=== PATIENT | male | born 1965 | race American Indian/Alaskan Native ===

== ENCOUNTER 2017-11-06 15:30 | Emergency (ER) | payer SELFPAY ==
--- NOTE | 2017-11-06 18:51 | Cat Scan Report ---
FINAL REPORT EXAM: CT HEAD/BRAIN WO CON HISTORY: dizziness TECHNIQUE: Standard unenhanced CT of the head at 5.0 millimeter axial increments. PRIORS: None. FINDINGS: The ventricular system is normal in size and configuration. There is no evidence for parenchymal volume loss. There is no evidence for mass lesion, mass effect, midline shift, acute intracranial hemorrhage, or acute ischemia/ infarction. No evidence for acute skull fracture is seen. No abnormality in the overlying scalp soft tissues is seen. Visualized paranasal sinuses are clear. IMPRESSION: Negative CT of the head. No acute intracranial process noted.
[2017-11-06 18:56] LABS: Hematocrit 44.5 % (35.5-45.6); Hemoglobin 14.7 gm/dl (11.8-15.2); Mean Corpuscular HGB Conc 33 % (32-34); Mean Corpuscular Hemoglobin 31 pg (28-32); Mean Corpuscular Volume 94 fl (84-94); Platelet Count 220 K/mm3 (140-440); Red Blood Count 4.75 M/mm3 (3.65-5.03)
[2017-11-06 19:15] LABS: INR 0.96 (0.87-1.13); Partial Thromboplastin Time 28.1 Sec. (24.2-36.6)
[2017-11-06 19:18] LABS: Albumin 4.2 g/dL (3.9-5)
--- NOTE | 2017-11-06 22:13 | Emergency Department Report ---
ED Dizziness HPI - General Chief Complaint: Dizziness Stated Complaint: DIZZINESS Time Seen by Provider: 11/06/17 21:17 Source: patient Mode of arrival: Ambulatory Limitations: No Limitations - History of Present Illness Initial Comments: 52-year-old male witha past medical history presents to the hospital complaining of intermittent lightheadedness and dizziness times a few days. Patient states symptoms mainly occur when leaning forward and sitting up as well as turning head. He states he feels like he is going to pass out and not so much having a spinning sensation. He he complains of nausea. He denies vomiting, blurry vision, focal weakness, focal numbness, chest pain, shortness of breath, abdominal pain, diarrhea, headache, or fever. Patient complains of ringing in his right ear 3 weeks ago which resolved and then he developed ringing in his left ear. 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 but states he performs a lot of physical activity and sweats a lot - Related Data Allergies Allergy/AdvReac Type Severity Reaction Status Date / Time No Known Allergies Allergy Unverified 11/06/17 16:05 ED Review of Systems ROS: Stated complaint: DIZZINESS Other details as noted in HPI Comment: All other systems reviewed and negative ED Past Medical Hx - Past Medical History Previous Medical History?: No - Surgical History Past Surgical History?: Yes Additional Surgical History: hernia repair - Social History Smoking Status: Never Smoker Substance Use Type: None ED Physical Exam - General Limitations: No Limitations - Other Other exam information: General: No limitations, patient is alert in no acute distress Head exam: Atraumatic, normocephalic Eyes exam: Normal appearance, pupils equal reactive to light, extraocular movements intact ENT: Moist mucous membrane, bilateral TMs normal Neck exam: Normal inspection, full range of motion, no meningismus nontender Respiratory exam: Clear to auscultation bilateral, no wheezes, rales, crackles Cardiovascular: Normal rate and rhythm, normal heart sounds Abdomen: Soft, nondistended, and nontender, with normal bowel sounds, no rebound, or guarding Extremity: Full range of motion normal inspection no deformity Back: Normal Inspection, full range of motion, no tenderness Neurologic: Alert, oriented x3, cranial nerves intact, no motor or sensory deficit, [id number] function intact Psychiatric: normal affect, normal mood Skin: Warm, dry, intact ED Course Vital Signs 11/06/17 11/06/17 11/06/17 16:05 22:08 22:11 Temperature 98.5 F Pulse Rate 72 Respiratory 18 18 Rate Blood Pressure 112/67 O2 Sat by Pulse 100 100 Oximetry 11/06/17 11/06/17 11/06/17 22:14 22:15 22:30 Temperature 98.2 F Pulse Rate Respiratory Rate Blood Pressure 127/79 137/73 O2 Sat by Pulse 99 99 Oximetry 11/06/17 11/06/17 11/06/17 22:45 23:00 23:15 Temperature Pulse Rate Respiratory Rate Blood Pressure 117/71 142/76 148/89 O2 Sat by Pulse 99 100 99 Oximetry 11/06/17 11/06/17 11/07/17 23:30 23:45 00:00 Temperature Pulse Rate Respiratory Rate Blood Pressure 156/95 146/95 150/85 O2 Sat by Pulse 99 100 Oximetry 11/07/17 11/07/17 11/07/17 00:15 00:30 00:45 Temperature Pulse Rate Respiratory Rate Blood Pressure 137/85 151/86 129/87 O2 Sat by Pulse 99 99 98 Oximetry 11/07/17 11/07/17 11/07/17 01:00 01:15 01:30 Temperature Pulse Rate Respiratory Rate Blood Pressure 133/86 129/77 120/84 O2 Sat by Pulse 99 99 96 Oximetry 11/07/17 01:46 Temperature Pulse Rate Respiratory Rate Blood Pressure 143/77 O2 Sat by Pulse 98 Oximetry - Reevaluation(s) Reevaluation #1: 11/07/17 02:07 after 2 L of NS dictating vital signs have improved the patient feels much better. ED Medical Decision Making - Lab Data Result diagrams: 11/06/17 18:34 11/06/17 18:34 Lab Results 11/06/17 11/06/17 11/06/17 Range/Units 18:34 18:34 18:34 WBC 5.0 (4.5-11.0) K/mm3 RBC 4.75 (3.65-5.03) M/mm3 Hgb 14.7 (11.8-15.2) gm/dl Hct 44.5 (35.5-45.6) % MCV 94 (84-94) fl MCH 31 (28-32) pg MCHC 33 (32-34) % RDW 14.0 (13.2-15.2) % Plt Count 220 (140-440) K/mm3 PT 13.3 (12.2-14.9) Sec. INR 0.96 (0.87-1.13) APTT 28.1 (24.2-36.6) Sec. Sodium 139 (137-145) mmol/L Potassium 4.0 (3.6-5.0) mmol/L Chloride 101.0 (98-107) mmol/L Carbon Dioxide 26 (22-30) mmol/L Anion Gap 16 mmol/L BUN 20 (9-20) mg/dL Creatinine 1.5 (0.8-1.5) mg/dL Estimated GFR 49 ml/min BUN/Creatinine Ratio 13 % Glucose 103 H (75-100) mg/dL Calcium 9.0 (8.4-10.2) mg/dL Magnesium (1.7-2.3) mg/dL Total Bilirubin 0.50 (0.1-1.2) mg/dL AST 46 H (5-40) units/L ALT 31 (7-56) units/L Alkaline Phosphatase 74 (35-129) units/L Troponin T (0.00-0.029) ng/mL Total Protein 7.0 (6.3-8.2) g/dL Albumin 4.2 (3.9-5) g/dL Albumin/Globulin Ratio 1.5 % //18 Range/Units 18:34 WBC (4.5-11.0) K/mm3 RBC (3.65-5.03) M/mm3 Hgb (11.8-15.2) gm/dl Hct (35.5-45.6) % MCV (84-94) fl MCH (28-32) pg MCHC (32-34) % RDW (13.2-15.2) % Plt Count (140-440) K/mm3 PT (12.2-14.9) Sec. INR (0.87-1.13) APTT (24.2-36.6) Sec. Sodium (137-145) mmol/L Potassium (3.6-5.0) mmol/L Chloride (98-107) mmol/L Carbon Dioxide (22-30) mmol/L Anion Gap mmol/L BUN (9-20) mg/dL Creatinine (0.8-1.5) mg/dL Estimated GFR ml/min BUN/Creatinine Ratio % Glucose (75-100) mg/dL Calcium (8.4-10.2) mg/dL Magnesium 2.30 (1.7-2.3) mg/dL Total Bilirubin (0.1-1.2) mg/dL AST (5-40) units/L ALT (7-56) units/L Alkaline Phosphatase (35-129) units/L Troponin T < 0.010 (0.00-0.029) ng/mL Total Protein (6.3-8.2) g/dL Albumin (3.9-5) g/dL Albumin/Globulin Ratio % - Radiology Data Radiology results: report reviewed FINAL REPORT EXAM: CT HEAD/BRAIN WO CON HISTORY: dizziness TECHNIQUE: Standard unenhanced CT of the head at 5.0 millimeter axial increments. PRIORS: None. FINDINGS: The ventricular system is normal in size and configuration. There is no evidence for parenchymal volume loss. There is no evidence for mass lesion, mass effect, midline shift, acute intracranial hemorrhage, or acute ischemia/ infarction. No evidence for acute skull fracture is seen. No abnormality in the overlying scalp soft tissues is seen. Visualized paranasal sinuses are clear. IMPRESSION: Negative CT of the head. No acute intracranial process noted. 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 ED Disposition Clinical Impression: Orthostatic dizziness, Dehydration Disposition: DC-01 TO HOME OR SELFCARE Is pt being admited?: No Does the pt Need Aspirin: No Condition: Stable Instructions: Lightheadedness (ED), Dehydration (ED) Additional Instructions: Follow up with your doctor or the doctor provided. Return if symptoms worsen as indicated by your discharge instructions. Continue to drink plenty of fluids before, during, and after work. Referrals: PRIMARY CARE, [Primary Care Provider] - 3-5 Days LETY GREER MD [Staff Physician] - 3-5 Days [facility] [Provider Group] - 3-5 Days Time of Disposition: 02:09 - Level of Consciousness 1a. Level of Consciousness: alert - LOC Questions 1b. LOC Questions: answers correctly - LOC Command 1c. LOC Commands: performs tasks correctly - Best Gaze 2. Best Gaze: normal - Visual 3. Visual: no visual loss - Facial Palsy 4. Facial Palsy: normal symmetrical movement - Motor Arm 5b. Motor Arm Right: no drift 5a. Motor Arm Left: no drift - Motor Leg 6a. Motor Leg Left: no drift 6b. Motor Leg Right: no drift - Limb Ataxia 7. Limb Ataxia: absent - Sensory 8. Sensory: normal - Best Language 9. Best Language: no aphasia - Dysarthria 10. Dysarthria: normal - Extinction and Inattention 11. Extinction/Inattention: no abnormality - Scoring Total Score: 0 Stroke Severity: No Stroke Symptoms
[2017-11-06] MEDS ORDERED: NACL 0.9% 1000 ML 1,000 ML IV ONE (22:26)
[2017-11-07] MEDS ORDERED: NACL 0.9% 1000 ML 1,000 ML IV ONE (00:36)
[2017-11-07 02:02] VITALS: BP 143/77
== END 2017-11-07 02:49 | disposition home or self-care (01) ==
LOC: ED 15:30
DX: E86.0 Dehydration (principal)
CPT/HCPCS: 36415; 70450; 80053; 83735; 84484; 85027; 85610; 85730; 93005; 93010; 96360; 96361; 99284; J7030

== ENCOUNTER 2019-05-11 11:19 | Inpatient (IN) | payer OTHER ==
--- NOTE | 2019-05-11 11:34 | Event Note ---
ED Screening Note Date of service: 05/11/19 Time: 11:31 ED Screening Note: Pt c/o syncopal episode x today began feeling lightheaded and racing heart prior to episode bilateral hand injuries This initial assessment/diagnostic orders/clinical plan/treatment(s) is/are subject to change based on patients health status, clinical progression and re- assessment by fellow clinical providers in the ED. Further treatment and workup at subsequent clinical providers discretion. Patient/guardian urged not to elope from the ED as their condition may be serious if not clinically assessed and managed. Initial orders include: CT head labs tdap
[2019-05-11 12:19] LABS: Basophils % (Auto) 0.4 % (0.0-1.8); Eosinophils # (Auto) 0.1 K/mm3 (0.0-0.4); Eosinophils % (Auto) 0.8 % (0.0-4.3); Hematocrit 44.6 % (35.5-45.6); Hemoglobin 14.9 gm/dl (11.8-15.2); Lymphocytes # (Auto) 0.7 K/mm3 (1.2-5.4); Lymphocytes % (Auto) 8.8 % (13.4-35.0); Mean Corpuscular HGB Conc 34 % (32-34); Mean Corpuscular Volume 92 fl (84-94); Monocytes # (Auto) 0.6 K/mm3 (0.0-0.8); Monocytes % (Auto) 7.5 % (0.0-7.3); Platelet Count 198 K/mm3 (140-440); Red Blood Count 4.87 M/mm3 (3.65-5.03); Red Cell Distribution Width 14.6 % (13.2-15.2)
[2019-05-11 12:29] LABS: Bilirubin,Urine NEG (Negative); Blood,Urine NEG (Negative); Color,Urine Yellow (Yellow); Mucus,Urine FEW /HPF
[2019-05-11 12:32] LABS: BUN/Creatinine Ratio 10; Blood Urea Nitrogen 12 mg/dL (9-20); Calcium 9.3 mg/dL (8.4-10.2); Hemolysis Index 11
[2019-05-11 12:36] LABS: Alanine Aminotransferase 25 units/L (7-56); Albumin 4.1 g/dL (3.9-5)
--- NOTE | 2019-05-11 12:39 | Cat Scan Report ---
CT BRAIN: 05/11/2019 INDICATION / CLINICAL INFORMATION: syncopal episode. COMPARISON: 11/06/2017 FINDINGS: BRAIN/INTRACRANIAL STRUCTURES: Unenhanced CT images of the brain were obtained and compared to the pr ior exam from 11/06/2017. There is been no change. There is no evidence of acute abnormality. Ventricles and sulci are normal in size and shape. There is no evidence of ischemic injury, demyelination, hemorrhage, or mass. There are no abnormal ex tra-axial fluid collections. EXTRACRANIAL STRUCTURES: Unremarkable. IMPRESSION: Negative unenhanced CT of the brain. All CT scans at this location are performed using dose reduction to ALARA by means of automated expos ure control. Signer Name: Emre Bethea MD Signed: 05/11/2019 12:35 PM Workstation Name: [id number]
[2019-05-11 12:41] LABS: Hyaline Casts,Urine 1 /LPF
[2019-05-11 12:51] LABS: Bilirubin,Direct < 0.2 mg/dL (0-0.2)
[2019-05-11 13:21] LABS: Chol/HDL Ratio 3.1 %
[2019-05-11] MEDS ORDERED: ASPIRIN 325 MG TAB PO ONE (13:54)
[2019-05-11] MEDS ORDERED: HEPARIN 10,000 UNITS/10 ML VIAL IV ONE (13:59)
--- NOTE | 2019-05-11 14:25 | History and Physical Report ---
History of Present Illness Chief complaint: I think I passed out History of present illness: 54 YO Male with no PMH presents to ED for evaluation. Patient states that he was in his usual state of health and was about to walk into a local truck stop when he experienced acute onset shortness of breath with concomitant heaviness in his chest. Patient states that he experienced chest pain. Patient states that pain was 6/10, acute onset, crushing in nature, worsened with deep breathing, associated with shortness of breath. Patient states that "I felt like I was being smothered". Patient subsequently lost consciousness and subsequently awoke with several people standing over him. Patient transported to [facility] via private vehicle. Patient seen and evaluated in the emergency department. Lab and imaging studies reviewed. Patient underwent cardiac enzymes and was found to have evidence of non-ST elevation AL. Cardiology team consulted in ED and patient was initiated on a heparin drip in the emergency department. Patient underwent CT Yoanna of the chest and was found to have bilateral pulmonary emboli. Patient admitted to telemetry for medical stabilization due to high risk for cardiopulmonary decompensation. No prior admission for review. No medication listed at time of admission for reconciliation. Patient denies fever, chills, palpitations, productive cough, bright red blood per rectum, unilateral leg swelling, individual/family history of DVT/PE/bleeding/blood clotting disorders, skin rash, or recent ill contacts. Past History Past Medical History: No medical history, other Past Surgical History: hernia repair Social history: single. denies: smoking, alcohol abuse, prescription drug abuse Family history: hypertension Medications and Allergies Allergies Allergy/AdvReac Type Severity Reaction Status Date / Time NSAIDS (Non-Steroidal AdvReac Unknown Verified 05/11/19 16:46 Anti-Inflamma Active Meds: Active Medications Heparin Sodium/Sodium Chloride (Heparin/ 0.45% Nacl-25,000 Unit/500 Ml) 25,000 unit in 500 mls @ 20 mls/hr IV TITRATE LILO; Protocol Review of Systems Constitutional: no weight loss, no weight gain, no fever, no chills Ears, nose, mouth and throat: no ear pain, no ear discharge, no tinnitis, no nasal congestion Cardiovascular: chest pain, shortness of breath, dyspnea on exertion, decreased exercise tolerance, no orthopnea, no palpitations, no rapid/irregular heart beat, no edema Respiratory: shortness of breath, dyspnea on exertion, pleurisy, no cough, no cough with sputum, no excessive sputum Gastrointestinal: no nausea, no vomiting, no diarrhea, no constipation, no change in bowel habits Genitourinary Male: no hematuria, no flank pain, no discharge, no urinary frequency, no urinary hesitancy Rectal: no pain, no incontinence, no bleeding Musculoskeletal: no neck stiffness, no neck pain, no shooting arm pain, no arm numbness/tingling, no low back pain, no shooting leg pain, no leg numbness/tingling Integumentary: no rash, no pruritis, no wounds, no jaundice, no boils Neurological: no transient paralysis, no paralysis, no weakness, no tingling Psychiatric: no anxiety, no change in sleep habits, no hypersomnia, no change in appetite, no change in libido, no suicidal ideation Endocrine: no cold intolerance, no heat intolerance, no excessive thirst, no nocturia Hematologic/Lymphatic: no easy bruising, no easy bleeding, no lymphadenopathy, no lymphedema Allergic/Immunologic: no urticaria, no wheezing, no persistent infections, no anaphylaxis, no angioedema Exam - Constitutional Vitals: Temp Pulse Resp BP Pulse Ox 97.6 F 87 16 140/98 94 05/11/19 11:29 05/11/19 11:29 05/11/19 11:29 05/11/19 11:29 05/11/19 11:29 General appearance: Present: mild distress - EENT Eyes: Present: PERRL ENT: hearing intact, clear oral mucosa - Neck Neck: Present: supple, normal ROM - Respiratory Respiratory effort: normal Respiratory: bilateral: CTA - Cardiovascular Heart Sounds: Present: S1 & S2. Absent: rub, click - Extremities Extremities: pulses symmetrical, No edema Peripheral Pulses: within normal limits - Abdominal General gastrointestinal: Present: soft, non-tender, non-distended, normal bowel sounds Male genitourinary: Present: normal - Integumentary Integumentary: Present: clear, warm, dry - Musculoskeletal Musculoskeletal: gait normal, strength equal bilaterally - Psychiatric Psychiatric: appropriate mood/affect, intact judgment & insight - Neurologic Neurologic: CNII-XII intact, moves all extremities Results - Labs CBC & Chem 7: 05/11/19 11:59 05/11/19 11:59 Labs: Abnormal lab results 05/11/19 05/11/19 05/11/19 Range/Units 11:48 11:59 11:59 Lymph % (Auto) 8.8 L (13.4-35.0) % Imperial % (Auto) 7.5 H (0.0-7.3) % Lymph # 0.7 L (1.2-5.4) K/mm3 Seg Neutrophils % 82.5 H (40.0-70.0) % Glucose 126 H (75-100) mg/dL POC Glucose 111 H (70-105) Troponin T (0.00-0.029) ng/mL 05/11/19 Range/Units 11:59 Lymph % (Auto) (13.4-35.0) % Imperial % (Auto) (0.0-7.3) % Lymph # (1.2-5.4) K/mm3 Seg Neutrophils % (40.0-70.0) % Glucose (75-100) mg/dL POC Glucose (70-105) Troponin T 0.156 H* (0.00-0.029) ng/mL Assessment and Plan - Patient Problems (1) NSTEMI (non-ST elevated myocardial infarction) Current Visit: Yes Status: Acute Plan to address problem: Cardiology consulted in ED, patient initiated on heparin drip in ED, serial cardiac enzymes, EKG, telemetry admission, morphine, supplemental oxygen, nitro, aspirin, further testing as per cardiology team. (2) Pulmonary emboli Current Visit: Yes Status: Acute Qualifiers: Chronicity: acute Plan to address problem: Therapeutic anticoagulation, CT angios chest, supportive care, supplemental oxygen, pulse oximetry, (3) DVT prophylaxis Current Visit: Yes Status: Acute Plan to address problem: SCD to bilateral lower extremities while in bed, therapeutic anticoagulation.
--- NOTE | 2019-05-11 14:29 | XRay Report ---
CHEST 2 VIEWS, 05/11/2019 2:10 PM INDICATION: Chest pain COMPARISON: None FINDINGS: Support devices: None Heart: The cardiac silhouette is normal in size. Lungs/pleura: The lungs are clear of focal airspace disease or significant pleural effusion. Additional findings: No significant acute abnormality. IMPRESSION: 1. No evidence of acute cardiopulmonary process. Signer Name: Luba Morales MD Signed: 05/11/2019 2:24 PM Workstation Name: [id number]
--- NOTE | 2019-05-11 14:35 | Emergency Department Report ---
ED General Adult HPI - General Chief complaint: Syncope Stated complaint: DIZZY Time Seen by Provider: 05/11/19 11:30 Source: patient Mode of arrival: Ambulatory Limitations: No Limitations - History of Present Illness Initial comments: Patient is a 54-year-old F Burmese male with no significant past medical history that he knows of who is presenting with episode of syncope. 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 Patient states he was about to walk into a truck stop and he acutely began to have shortness of breath chest heaviness feeling as though he was being smothered. Patient states by time he got into the building he was dizzy and had a brief loss of consciousness. Patient states he woke up with several people around him asking what C okay. He does not believe he hit his head. He has some scrapes on his knuckles he thinks from the fall little scrape on his right lloyd. Patient states the chest discomfort and shortness of breath that he initially had is now improved and he is pain-free. Patient denies any nausea vomiting diaphoresis fevers chills cough cold or congestion. Severity scale (0 -10): 0 - Related Data Allergies Allergy/AdvReac Type Severity Reaction Status Date / Time No Known Allergies Allergy Unverified 11/06/17 16:05 ED Review of Systems ROS: Stated complaint: DIZZY Other details as noted in HPI Comment: All other systems reviewed and negative ED Past Medical Hx - Past Medical History Previous Medical History?: No - Surgical History Past Surgical History?: Yes Additional Surgical History: hernia repair - Social History Smoking Status: Former Smoker ED Physical Exam - General Limitations: No Limitations General appearance: alert, in no apparent distress - Head Head exam: Present: atraumatic, normocephalic - Eye Eye exam: Present: normal appearance - ENT ENT exam: Present: mucous membranes moist - Neck Neck exam: Present: normal inspection - Respiratory Respiratory exam: Present: normal lung sounds bilaterally. Absent: respiratory distress, wheezes, rales, rhonchi - Cardiovascular Cardiovascular Exam: Present: regular rate, normal rhythm, normal heart sounds. Absent: systolic murmur, diastolic murmur, rubs, gallop - GI/Abdominal GI/Abdominal exam: Present: soft, normal bowel sounds. Absent: distended, tenderness, guarding - Rectal Rectal exam: Present: deferred - Extremities Exam Extremities exam: Present: normal inspection - Back Exam Back exam: Present: normal inspection - Neurological Exam Neurological exam: Present: alert, oriented X3 - Psychiatric Psychiatric exam: Present: normal affect, normal mood - Skin Skin exam: Present: warm, dry, intact, normal color. Absent: rash ED Course Vital Signs 05/11/19 11:29 Temperature 97.6 F Pulse Rate 87 Respiratory 16 Rate Blood Pressure 140/98 Blood Pressure 140/98 [Right] O2 Sat by Pulse 94 Oximetry ED Medical Decision Making - Lab Data Result diagrams: 05/11/19 11:59 05/11/19 11:59 Lab Results 05/11/19 05/11/19 05/11/19 Range/Units 11:48 11:59 11:59 WBC 8.4 (4.5-11.0) K/mm3 RBC 4.87 (3.65-5.03) M/mm3 Hgb 14.9 (11.8-15.2) gm/dl Hct 44.6 (35.5-45.6) % MCV 92 (84-94) fl MCH 31 (28-32) pg MCHC 34 (32-34) % RDW 14.6 (13.2-15.2) % Plt Count 198 (140-440) K/mm3 Lymph % (Auto) 8.8 L (13.4-35.0) % [place] % (Auto) 7.5 H (0.0-7.3) % Eos % (Auto) 0.8 (0.0-4.3) % Baso % (Auto) 0.4 (0.0-1.8) % Lymph # 0.7 L (1.2-5.4) K/mm3 [place] # 0.6 (0.0-0.8) K/mm3 Eos # 0.1 (0.0-0.4) K/mm3 Baso # 0.0 (0.0-0.1) K/mm3 Seg Neutrophils % 82.5 H (40.0-70.0) % Seg Neutrophils # 6.9 (1.8-7.7) K/mm3 Sodium 139 (137-145) mmol/L Potassium 4.3 (3.6-5.0) mmol/L Chloride 101.5 (98-107) mmol/L Carbon Dioxide 27 (22-30) mmol/L Anion Gap 15 mmol/L BUN 12 (9-20) mg/dL Creatinine 1.2 (0.8-1.5) mg/dL Estimated GFR > 60 ml/min BUN/Creatinine Ratio 10 % Glucose 126 H (75-100) mg/dL POC Glucose 111 H (70-105) Calcium 9.3 (8.4-10.2) mg/dL Total Bilirubin (0.1-1.2) mg/dL Direct Bilirubin (0-0.2) mg/dL AST (5-40) units/L ALT (7-56) units/L Alkaline Phosphatase (35-129) units/L Troponin T (0.00-0.029) ng/mL Total Protein (6.3-8.2) g/dL Albumin (3.9-5) g/dL Albumin/Globulin Ratio % Triglycerides (2-149) mg/dL Cholesterol (50-199) mg/dL LDL Cholesterol Direct (50-130) mg/dL HDL Cholesterol (40-59) mg/dL Cholesterol/HDL Ratio % Urine Color (Yellow) Urine Turbidity (Clear) Urine pH (5.0-7.0) Ur Specific [place] (1.003-1.030) Urine Protein (Negative) mg/dL Urine Glucose (UA) (Negative) mg/dL Urine Ketones (Negative) mg/dL Urine Blood (Negative) Urine Nitrite (Negative) Urine Bilirubin (Negative) Urine Urobilinogen (<2.0) mg/dL Ur Leukocyte Esterase (Negative) Urine WBC (Auto) (0.0-6.0) /HPF Urine RBC (Auto) (0.0-6.0) /HPF U Epithel Cells (Auto) (0-13.0) /HPF Hyaline Casts /LPF Urine Mucus /HPF 05/11/19 05/11/19 05/11/19 Range/Units 11:59 11:59 12:16 WBC (4.5-11.0) K/mm3 RBC (3.65-5.03) M/mm3 Hgb (11.8-15.2) gm/dl Hct (35.5-45.6) % MCV (84-94) fl MCH (28-32) pg MCHC (32-34) % RDW (13.2-15.2) % Plt Count (140-440) K/mm3 Lymph % (Auto) (13.4-35.0) % [place] % (Auto) (0.0-7.3) % Eos % (Auto) (0.0-4.3) % Baso % (Auto) (0.0-1.8) % Lymph # (1.2-5.4) K/mm3 [place]eller # (0.0-0.8) K/mm3 Eos # (0.0-0.4) K/mm3 Baso # (0.0-0.1) K/mm3 Seg Neutrophils % (40.0-70.0) % Seg Neutrophils # (1.8-7.7) K/mm3 Sodium (137-145) mmol/L Potassium (3.6-5.0) mmol/L Chloride (98-107) mmol/L Carbon Dioxide (22-30) mmol/L Anion Gap mmol/L BUN (9-20) mg/dL Creatinine (0.8-1.5) mg/dL Estimated GFR ml/min BUN/Creatinine Ratio % Glucose (75-100) mg/dL POC Glucose (70-105) Calcium (8.4-10.2) mg/dL Total Bilirubin 0.40 (0.1-1.2) mg/dL Direct Bilirubin < 0.2 (0-0.2) mg/dL AST 31 (5-40) units/L ALT 25 (7-56) units/L Alkaline Phosphatase 85 (35-129) units/L Troponin T 0.156 H* (0.00-0.029) ng/mL Total Protein 7.1 (6.3-8.2) g/dL Albumin 4.1 (3.9-5) g/dL Albumin/Globulin Ratio 1.4 % Triglycerides 45 (2-149) mg/dL Cholesterol 174 (50-199) mg/dL LDL Cholesterol Direct 114 (50-130) mg/dL HDL Cholesterol 56 (40-59) mg/dL Cholesterol/HDL Ratio 3.10 % Urine Color Yellow (Yellow) Urine Turbidity Clear (Clear) Urine pH 7.0 (5.0-7.0) Ur Specific [place] 1.021 (1.003-1.030) Urine Protein 30 mg/dl (Negative) mg/dL Urine Glucose (UA) Neg (Negative) mg/dL Urine Ketones Neg (Negative) mg/dL Urine Blood Neg (Negative) Urine Nitrite Neg (Negative) Urine Bilirubin Neg (Negative) Urine Urobilinogen 2.0 (<2.0) mg/dL Ur Leukocyte Esterase Neg (Negative) Urine WBC (Auto) 1.0 (0.0-6.0) /HPF Urine RBC (Auto) 2.0 (0.0-6.0) /HPF U Epithel Cells (Auto) < 1.0 (0-13.0) /HPF Hyaline Casts 1 /LPF Urine Mucus Few /HPF - EKG Data -: EKG Interpreted by In EKG shows normal: sinus rhythm, axis, intervals, QRS complexes, ST-T waves (There is some diffuse T wave flattening there is nonspecific) Rate: normal - Radiology Data CHEST 2 VIEWS, 05/11/2019 2:10 PM INDICATION: Chest pain COMPARISON: None FINDINGS: Support devices: None Heart: The cardiac silhouette is normal in size. Lungs/pleura: The lungs are clear of focal airspace disease or significant pleural effusion. Additional findings: No significant acute abnormality. IMPRESSION: 1. No evidence of acute cardiopulmonary process. Signer Name: Luba Morales MD Signed: 05/11/2019 2:24 PM Workstation Name: [id number] CT BRAIN: 05/11/2019 INDICATION / CLINICAL INFORMATION: syncopal episode. COMPARISON: 11/06/2017 FINDINGS: BRAIN/INTRACRANIAL STRUCTURES: Unenhanced CT images of the brain were obtained and compared to the prior exam from 11/06/2017. There is been no change. There is no evidence of acute abnormality. Ventricles and sulci are normal in size and shape. There is no evidence of ischemic injury, demyelination, hemorrhage, or mass. There are no abnormal extra-axial fluid collections. EXTRACRANIAL STRUCTURES: Unremarkable. IMPRESSION: Negative unenhanced CT of the brain. All CT scans at this location are performed using dose reduction to ALARA by means of automated exposure control. Signer Name: Emre Bethea MD Signed: 05/11/2019 12:35 PM Workstation Name: [id number] - Medical Decision Making Discussed the case with Dr. Pinzon with cardiology who suggested the patient be admitted to the hospital. Patient started on heparin. Patient will be admitted in stable condition to the hospitalist service. Critical Care Time: Yes (30) Critical care attestation.: If time is entered above; I have spent that time in minutes in the direct care of this critically ill patient, excluding procedure time. ED Disposition Clinical Impression: NSTEMI (non-ST elevated myocardial infarction) Syncope Qualifiers: Syncope type: unspecified Qualified Code(s): R55 - Syncope and collapse Disposition: DC09 OP ADMIT IP TO THIS HOSP Is pt being admited?: Yes Does the pt Need Aspirin: No Condition: Stable Time of Disposition: 14:39
[2019-05-11] MEDS: HEPARIN/ 0.45% NACL DRIP 25,000 UNIT/500 ML BAG IV SCH (14:54)
[2019-05-11 15:34] LABS: INR 1.65 (0.87-1.13)
[2019-05-11 15:35] LABS: Partial Thromboplastin Time 58.5 Sec. (24.2-36.6)
[2019-05-11] MEDS ORDERED: NEOMY 3.5 MG/BACIT 400 UNITS/POLY B 5000 UNITS/GM OINT PACKET TP ONE (15:38)
[2019-05-11] MEDS ORDERED: ONDANSETRON 4 MG/2 ML INJ IV PRN (16:30)
[2019-05-11] MEDS ORDERED: ACETAMINOPHEN 325 MG TAB PO PRN (16:30)
[2019-05-11] MEDS ORDERED: ALBUTEROL 2.5 MG/3 ML NEBU IH PRN (16:30)
[2019-05-11] MEDS ORDERED: ASPIRIN 81 MG TAB CHEW PO STA (16:31)
[2019-05-11] MEDS ORDERED: NITROGLYCERIN 0.4 MG TAB SUBL SL PRN (16:31)
[2019-05-11 16:52] LABS: Amphetamine Screen,Urine PRESUMPTIVE NEGATIVE; Benzodiazepines Screen,Urine PRESUMPTIVE NEGATIVE; Cannabinoid Screen,Urine PRESUMPTIVE NEGATIVE; Cocaine Screen,Urine PRESUMPTIVE NEGATIVE; Methadone Screen,Urine PRESUMPTIVE NEGATIVE; Opiate Screen,Urine PRESUMPTIVE NEGATIVE
--- NOTE | 2019-05-11 17:36 | Cat Scan Report ---
CTA CHEST WITH IV CONTRAST INDICATION: Shortness of breath. Chest pain. TECHNIQUE: Axial CT images were obtained through the chest after injection of IV contrast. Coronal oblique 2-D reconstruction images were produced. 3 plane MIP reconstruction images were produced at an [employer] workstation. All CTs at this facility utilize dose reduction techniques including automated expos ure control, iterative reconstruction and weight based dosing when appropriate to reduce patient radi ation dose to as low as reasonable achievable. COMPARISON: Chest radiograph, 05/11/2019 FINDINGS: Evaluation of the pulmonary arteries demonstrate multiple bilateral segmental and subsegmental fillin g defects representing bilateral pulmonary emboli. The thoracic aorta is normal in caliber. The heart is normal in size. Evaluation of the lung parenchyma demonstrates no focal airspace disease or pleur al effusion. Limited imaging of the upper abdomen demonstrates a left renal cyst partially visualized. IMPRESSION: 1. Evaluation positive for bilateral segmental and subsegmental pulmonary emboli. Positive critical value of pulmonary embolism was identified at 4:25 PM central time and personally c ommunicated to Dr. Martinez in the Emergency Department at 4:31 Central time. Signer Name: Luba Morales MD Signed: 05/11/2019 5:31 PM Workstation Name: [id number]
[2019-05-12 07:09] LABS: BUN/Creatinine Ratio 8; Blood Urea Nitrogen 10 mg/dL (9-20); Calcium 8.7 mg/dL (8.4-10.2); Hemolysis Index 12
--- NOTE | 2019-05-12 08:53 | Progress Note ---
Assessment and Plan Assessment and plan: --Bilateral PE; on heparin drip Check lower extremity venous Doppler to rule out DVT Vascular consult, echo for RV and LV function Oxygen PRN ,titrate O2 sats to more than 90% Hypercoagulable work-up,hematology consult --History of syncopal episode; Fall precautions, check orthostats Syncope work-up in progress --Non-ST elevation AL/positive troponins On heparin drip, cardiology evaluated, feel that the abnormal cardiac enzymes are due to bilateral PE Patient refused aspirin, allergic to NSAIDs --DVT prophylaxis; on heparin drip Monitor closely and adjust management as needed Follow cardiology and vascular and hematology recommendations Plan of care reviewed with the patient and his nurse History Interval history: 54-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 Cardiology consulted, patient n.p.o. I have seen and examined the patient at bedside this morning Patient's chart and other records reviewed Patient is asking for food Denies chest pain or shortness of breath Saturating well room air, not in acute distress Vital signs noted Hospitalist Physical - Constitutional Vitals: Temp Pulse Resp BP Pulse Ox 97.2 F L 77 18 123/75 100 05/12/19 08:43 05/12/19 04:13 05/12/19 08:43 05/12/19 08:43 05/12/19 04:13 General appearance: Present: no acute distress, well-nourished - EENT Eyes: Present: PERRL, EOM intact - Neck Neck: Present: supple, normal ROM - Respiratory Respiratory effort: normal Respiratory: bilateral: diminished, negative: rales, rhonchi, wheezing - Cardiovascular Rhythm: regular Heart Sounds: Present: S1 & S2 - Extremities Extremities: no ischemia, No edema, abnormal (Superficial small abrasions on the leg [due to fall]) - Abdominal General gastrointestinal: soft, non-tender, non-distended, normal bowel sounds - Integumentary Integumentary: Present: clear, warm - Psychiatric Psychiatric: appropriate mood/affect, cooperative - Neurologic Neurologic: moves all extremities Results - Labs CBC & Chem 7: 05/11/19 11:59 05/12/19 05:29 Labs: Laboratory Last Values WBC 8.4 K/mm3 (4.5-11.0) 05/11/19 11:59 RBC 4.87 M/mm3 (3.65-5.03) 05/11/19 11:59 Hgb 14.9 gm/dl (11.8-15.2) 05/11/19 11:59 Hct 44.6 % (35.5-45.6) 05/11/19 11:59 MCV 92 fl (84-94) 05/11/19 11:59 MCH 31 pg (28-32) 05/11/19 11:59 MCHC 34 % (32-34) 05/11/19 11:59 RDW 14.6 % (13.2-15.2) 05/11/19 11:59 Plt Count 198 K/mm3 (140-440) 05/11/19 11:59 Lymph % (Auto) 8.8 % (13.4-35.0) L 05/11/19 11:59 [place] % (Auto) 7.5 % (0.0-7.3) H 05/11/19 11:59 Eos % (Auto) 0.8 % (0.0-4.3) 05/11/19 11:59 Baso % (Auto) 0.4 % (0.0-1.8) 05/11/19 11:59 Lymph # 0.7 K/mm3 (1.2-5.4) L 05/11/19 11:59 [place] # 0.6 K/mm3 (0.0-0.8) 05/11/19 11:59 Eos # 0.1 K/mm3 (0.0-0.4) 05/11/19 11:59 Baso # 0.0 K/mm3 (0.0-0.1) 05/11/19 11:59 Seg Neutrophils % 82.5 % (40.0-70.0) H 05/11/19 11:59 Seg Neutrophils # 6.9 K/mm3 (1.8-7.7) 05/11/19 11:59 PT 19.8 Sec. (12.2-14.9) H 05/11/19 14:16 INR 1.65 (0.87-1.13) H 05/11/19 14:16 APTT 58.5 Sec. (24.2-36.6) H 05/11/19 14:16 D-Dimer 1493.95 ng/mlDDU (0-234) H 05/11/19 14:16 Heparin Anti-Xa Level 0.30 U.I./ml (0.3-0.7) 05/12/19 02:23 Sodium 141 mmol/L (137-145) 05/12/19 05:29 Potassium 3.8 mmol/L (3.6-5.0) 05/12/19 05:29 Chloride 104.4 mmol/L (98-107) 05/12/19 05:29 Carbon Dioxide 25 mmol/L (22-30) 05/12/19 05:29 Anion Gap 15 mmol/L 05/12/19 05:29 BUN 10 mg/dL (9-20) 05/12/19 05:29 Creatinine 1.2 mg/dL (0.8-1.5) 05/12/19 05:29 Estimated GFR > 60 ml/min 05/12/19 05:29 BUN/Creatinine Ratio 8 % 05/12/19 05:29 Glucose 105 mg/dL (75-100) H 05/12/19 05:29 POC Glucose 111 (70-105) H 05/11/19 11:48 Calcium 8.7 mg/dL (8.4-10.2) 05/12/19 05:29 Total Bilirubin 0.40 mg/dL (0.1-1.2) 05/11/19 11:59 Direct Bilirubin < 0.2 mg/dL (0-0.2) 05/11/19 11:59 AST 31 units/L (5-40) 05/11/19 11:59 ALT 25 units/L (7-56) 05/11/19 11:59 Alkaline Phosphatase 85 units/L (35-129) 05/11/19 11:59 Troponin T 0.059 ng/mL (0.00-0.029) H D 05/11/19 22:22 NT-Pro-B Natriuret Pep 109.3 pg/mL (0-900) 05/11/19 14:32 Total Protein 7.1 g/dL (6.3-8.2) 05/11/19 11:59 Albumin 4.1 g/dL (3.9-5) 05/11/19 11:59 Albumin/Globulin Ratio 1.4 % 05/11/19 11:59 Triglycerides 45 mg/dL (2-149) 05/11/19 11:59 Cholesterol 174 mg/dL (50-199) 05/11/19 11:59 LDL Cholesterol Direct 114 mg/dL (50-130) 05/11/19 11:59 HDL Cholesterol 56 mg/dL (40-59) 05/11/19 11:59 Cholesterol/HDL Ratio 3.10 % 05/11/19 11:59 Urine Color Yellow (Yellow) 05/11/19 12:16 Urine Turbidity Clear (Clear) 05/11/19 12:16 Urine pH 7.0 (5.0-7.0) 05/11/19 12:16 Ur Specific [place] 1.021 (1.003-1.030) 05/11/19 12:16 Urine Protein 30 mg/dl mg/dL (Negative) 05/11/19 12:16 Urine Glucose (UA) Neg mg/dL (Negative) 05/11/19 12:16 Urine Ketones Neg mg/dL (Negative) 05/11/19 12:16 Urine Blood Neg (Negative) 05/11/19 12:16 Urine Nitrite Neg (Negative) 05/11/19 12:16 Urine Bilirubin Neg (Negative) 05/11/19 12:16 Urine Urobilinogen 2.0 mg/dL (<2.0) 05/11/19 12:16 Ur Leukocyte Esterase Neg (Negative) 05/11/19 12:16 Urine WBC (Auto) 1.0 /HPF (0.0-6.0) 05/11/19 12:16 Urine RBC (Auto) 2.0 /HPF (0.0-6.0) 05/11/19 12:16 U Epithel Cells (Auto) < 1.0 /HPF (0-13.0) 05/11/19 12:16 Hyaline Casts 1 /LPF 05/11/19 12:16 Urine Mucus Few /HPF 05/11/19 12:16 Urine Opiates Screen Presumptive negative 05/11/19 Unknown Urine Methadone Screen Presumptive negative 05/11/19 Unknown Ur Barbiturates Screen Presumptive negative 05/11/19 Unknown Ur Phencyclidine Scrn Presumptive negative 05/11/19 Unknown Ur Amphetamines Screen Presumptive negative 05/11/19 Unknown U Benzodiazepines Scrn Presumptive negative 05/11/19 Unknown Urine Cocaine Screen Presumptive negative 05/11/19 Unknown U Marijuana (THC) Screen Presumptive negative 05/11/19 Unknown Drugs of Abuse Note Disclamer 05/11/19 Unknown Active Medications - Current Medications Current Medications: Generic Name Dose Route Start Last Admin Trade Name Freq PRN Reason Stop Dose Admin Acetaminophen 650 mg 05/11/19 16:30 Tylenol PO Q4H PRN Pain MILD(1-3)/Fever >100.5/VENEGAS Albuterol 2.5 mg 05/11/19 16:30 Proventil IH Q4HRT PRN Shortness Of Breath Heparin Sodium/Sodium Chloride 25,000 unit in 500 mls @ 20 mls/hr 05/11/19 14:00 05/12/19 02:59 Heparin/ 0.45% Nacl-25,000 Unit/500 Ml IV 1,000 units/hr TITRATE LILO 20 mls/hr Titration Protocol 1,000 UNITS/HR Nitroglycerin 0.4 mg 05/11/19 16:31 Nitrostat SL Q5M PRN Chest Pain Ondansetron HCl 4 mg 05/11/19 16:30 Zofran IV Q8H PRN Nausea And Vomiting Sodium Chloride 10 ml 05/11/19 22:00 05/11/19 22:26 Sodium Chloride Flush Syringe 10 Ml IV 10 ml BID LILO Administration Sodium Chloride 10 ml 05/11/19 16:30 Sodium Chloride Flush Syringe 10 Ml IV PRN PRN LINE FLUSH Sodium Chloride 10 ml 05/11/19 16:31 Sodium Chloride Flush Syringe 10 Ml IV PRN PRN LINE FLUSH
--- NOTE | 2019-05-12 09:47 | Consultation ---
History of Present Illness Consult date: 05/12/19 Consult reason: abnormal cardiac enzymes History of present illness: Patient is a 54-year-old F Cym[place] male with no significant past medical hi story who presented to the hospital with an episode of syncope. 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 He apparently was about to walk into a truck stop and he acutely began to have shortness of breath chest heaviness feeling as though he was being smothered. This was then associated with some dizziness and a brief loss of consciousness. By the time he presented to the hospital his shortness of breath and vague chest discomfort are improved. Cardiac enzymes are mildly elevated and cardiology was consulted. However in the interim d- dimer was significantly elevated and CT scan it showed bilateral PE. Patient reports no family history of blood clots no family history of sudden . He reports he was otherwise healthy though not active with exercise . Past History Past Medical History: No medical history, other Past Surgical History: hernia repair Social history: single. denies: smoking, alcohol abuse, prescription drug abuse Family history: hypertension Medications and Allergies Allergies Allergy/AdvReac Type Severity Reaction Status Date / Time NSAIDS (Non-Steroidal AdvReac Unknown Verified 05/11/19 16:46 Anti-Inflamma Active Meds: Active Medications Acetaminophen (Tylenol) 650 mg PO Q4H PRN PRN Reason: Pain MILD(1-3)/Fever >100.5/VENEGAS Albuterol (Proventil) 2.5 mg IH Q4HRT PRN PRN Reason: Shortness Of Breath Heparin Sodium/Sodium Chloride (Heparin/ 0.45% Nacl-25,000 Unit/500 Ml) 25,000 unit in 500 mls @ 20 mls/hr IV TITRATE LILO; Protocol Last Titration: 05/12/19 02:59 Dose: 1,000 units/hr, 20 mls/hr Documented by: Nitroglycerin (Nitrostat) 0.4 mg SL Q5M PRN PRN Reason: Chest Pain Ondansetron HCl (Zofran) 4 mg IV Q8H PRN PRN Reason: Nausea And Vomiting Pantoprazole Sodium (Protonix) 40 mg IV QDAY [facility] Sodium Chloride (Sodium Chloride Flush Syringe 10 Ml) 10 ml IV BID [facility] Last Admin: 05/11/19 22:26 Dose: 10 ml Documented by: Sodium Chloride (Sodium Chloride Flush Syringe 10 Ml) 10 ml IV PRN PRN PRN Reason: LINE FLUSH Sodium Chloride (Sodium Chloride Flush Syringe 10 Ml) 10 ml IV PRN PRN PRN Reason: LINE FLUSH Review of Systems All systems: negative (As mentioned in the H&P) Physical Examination Vital Signs Temp Pulse Resp BP Pulse Ox 97.6 F 87 16 140/98 94 05/11/19 11:05/11/19 11:05/11/19 11:05/11/19 11:05/11/19 11:29 General appearance: no acute distress, well-nourished HEENT: Positive: Normocephaly Neck: Positive: neck supple Cardiac: Positive: Reg Rate and Rhythm Lungs: Positive: clear to auscultation Neuro: Positive: Grossly Intact Abdomen: Positive: Unremarkable Male genitourinary: Positive: deferred Skin: Positive: Clear Extremities: Present: normal Results 05/11/19 11:59 05/12/19 05:29 Cardiac Enzymes 05/11/19 Range/Units 11:59 AST 31 (5-40) units/L Coagulation 05/11/19 Range/Units 14:16 PT 19.8 H (12.2-14.9) Sec. INR 1.65 H (0.87-1.13) APTT 58.5 H (24.2-36.6) Sec. Lipids 05/11/19 Range/Units 11:59 Triglycerides 45 (2-149) mg/dL Cholesterol 174 (50-199) mg/dL HDL Cholesterol 56 (40-59) mg/dL Cholesterol/HDL Ratio 3.10 % CBC 05/11/19 Range/Units 11:59 WBC 8.4 (4.5-11.0) K/mm3 RBC 4.87 (3.65-5.03) M/mm3 Hgb 14.9 (11.8-15.2) gm/dl Hct 44.6 (35.5-45.6) % Plt Count 198 (140-440) K/mm3 Lymph # 0.7 L (1.2-5.4) K/mm3 [place] # 0.6 (0.0-0.8) K/mm3 Eos # 0.1 (0.0-0.4) K/mm3 Baso # 0.0 (0.0-0.1) K/mm3 Comprehensive Metabolic Panel 05/11/19 05/11/19 05/12/19 Range/Units 11:59 11:59 05:29 Sodium 139 141 (137-145) mmol/L Potassium 4.3 3.8 (3.6-5.0) mmol/L Chloride 101.5 104.4 (98-107) mmol/L Carbon Dioxide 27 25 (22-30) mmol/L BUN 12 10 (9-20) mg/dL Creatinine 1.2 1.2 (0.8-1.5) mg/dL Glucose 126 H 105 H (75-100) mg/dL Calcium 9.3 8.7 (8.4-10.2) mg/dL Direct Bilirubin < 0.2 (0-0.2) mg/dL AST 31 (5-40) units/L ALT 25 (7-56) units/L Alkaline Phosphatase 85 (35-129) units/L Total Protein 7.1 (6.3-8.2) g/dL Albumin 4.1 (3.9-5) g/dL EKG interpretations - Telemetry EKG Rhythm: Sinus Rhythm (Incomplete right bundle branch block) Assessment and Plan 1. Elevated cardiac enzymes Due to acute bilateral PE. 2. Chest pain and shortness of breath Related to PE. 3. Acute unprovoked bilateral PE No evidence of right heart strain on EKG patient stable with no tachycardia and good oxygen saturation on room air and no obvious respiratory distress 4. Syncope secondary to PE Plan Anticoagulation per primary team 2D echo to evaluate right heart strain Clinically stable may not need percutaneous thrombectomy At his age would definitely rule out hypercoagulable state secondary to malignancy If work-up for hypercoagulable state is negative most likely will need lifelong anticoagulation secondary to unprovoked PE
[2019-05-12] MEDS ORDERED: PANTOPRAZOLE 40 MG INJ IV SCH (10:00)
--- NOTE | 2019-05-12 13:43 | Event Note ---
Date: 05/12/19 Attempted to see patient for consult however patient in ECHO.
[2019-05-12] MEDS ORDERED: BACITRACIN ZINC OINT 28.4 GM TP PRN (21:43)
[2019-05-13 02:41] LABS: Hematocrit 42.1 % (35.5-45.6); Hemoglobin 13.9 gm/dl (11.8-15.2)
--- NOTE | 2019-05-13 07:52 | Hem/Onc Consultation ---
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 Cardiology consulted Past History Past Medical History: No medical history, other Past Surgical History: hernia repair Social history: single. denies: smoking, alcohol abuse, prescription drug abuse Family history: hypertension Medications and Allergies Allergies Allergy/AdvReac Type Severity Reaction Status Date / Time NSAIDS (Non-Steroidal AdvReac Unknown Verified 05/11/19 16:46 Anti-Inflamma Active Meds: Active Medications Acetaminophen (Tylenol) 650 mg PO Q4H PRN PRN Reason: Pain MILD(1-3)/Fever >100.5/VENEGAS Albuterol (Proventil) 2.5 mg IH Q4HRT PRN PRN Reason: Shortness Of Breath Bacitracin (Antibiotic Oint) 1 applic TP PRN PRN PRN Reason: Wound Care Last Admin: 05/12/19 23:09 Dose: 1 applic Documented by: Heparin Sodium/Sodium Chloride (Heparin/ 0.45% Nacl-25,000 Unit/500 Ml) 25,000 unit in 500 mls @ 20 mls/hr IV TITRATE LILO; Protocol Last Titration: 05/13/19 04:44 Dose: Infused Documented by: Nitroglycerin (Nitrostat) 0.4 mg SL Q5M PRN PRN Reason: Chest Pain Ondansetron HCl (Zofran) 4 mg IV Q8H PRN PRN Reason: Nausea And Vomiting Pantoprazole Sodium (Protonix) 40 mg PO DAILY LILO Sodium Chloride (Sodium Chloride Flush Syringe 10 Ml) 10 ml IV BID LILO Last Admin: 05/12/19 23:09 Dose: 10 ml Documented by: Sodium Chloride (Sodium Chloride Flush Syringe 10 Ml) 10 ml IV PRN PRN PRN Reason: LINE FLUSH Review of Systems Constitutional: no weight loss, no weight gain, no fever, no chills Ears, nose, mouth and throat: no epistaxis Cardiovascular: lightheadedness, shortness of breath Respiratory: shortness of breath Gastrointestinal: no abdominal pain, no BRBPR Genitourinary Male: no hematuria Rectal: no bleeding Integumentary: no rash Neurological: no paralysis Endocrine: no cold intolerance, no heat intolerance Hematologic/Lymphatic: no easy bruising, no easy bleeding Exam - Exam Narrative Exam: Vitals were reviewed. No pallor No icterus No neck lymph nodes Heart S1-S2 present Lungs clear to auscultation anteriorly Abdomen soft Leg no edema Male genitalia not examined - Constitutional Vitals: Last Vital Signs Temp 97.9 F 05/13/19 07:42 Pulse 84 05/13/19 07:42 Resp 18 05/13/19 07:42 BP 142/94 05/13/19 07:42 Pulse Ox 97 05/13/19 07:42 Results - Labs lab Results: Laboratory Results - last 24 hr 05/13/19 05/13/19 02:19 02:19 Hgb 13.9 Hct 42.1 Plt Count 185 Heparin Anti-Xa Level 0.10 L Assessment and Plan # b/l segmental and subsegmental PE heparin pt is self pay pt would need oral anticoagulaiton - self pay will make it challenging hypercoag Ix as OP leg doppler order # mail truck driver # d dimer [id number] - sec to PE - Patient Problems (1) Pulmonary emboli Current Visit: Yes Status: Acute Qualifiers: Chronicity: acute
[2019-05-13] MEDS: PANTOPRAZOLE 40 MG TAB PO SCH (09:06)
--- NOTE | 2019-05-13 11:19 | Consultation ---
History of Present Illness - Reason for Consult Consult date: 05/13/19 pulmonary embolism Requesting physician: TAITANA BOLTON - History of Present Illness HPI: 54-year-old gentleman with no prior medical history presents after an episode of acute chest pain and a syncopal episode to the emergency department. Work-up in the emergency department demonstrated the patient to have bilateral segmental and subsegmental pulmonary embolism. The patient was admitted to the floor and placed on therapeutic anticoagulation. The patient states his symptoms have since resolved and denies shortness of breath. Patient states he intermittently develops low bilateral lower leg swelling with prolonged sitting. This is improved with compression stockings. He denies any history of previous lower extremity DVT. The patient quit smoking approximately 20 years ago. ROS: As per HPI, otherwise negative PE: NAD, alert and oriented x3 Non-labored respirations Regular rate and rhythm Palpable posterior tibial pulses at the ankle bilaterally Neuro grossly intact No edema noted to the lower extremities bilaterally CTA of the chest reviewed Bilateral lower extremity venous duplex reviewed Carotid duplex reviewed Plan: 54-year-old male with acute pulmonary embolism Patient symptoms have since resolved After review with patient imaging and current clinical picture no need for intervention at this time Patient can be transitioned to therapeutic oral anticoagulation Patient should follow-up with hematology as an outpatient Please call for any questions or concerns Past History Past Medical History: No medical history, other Past Surgical History: hernia repair Social history: single. denies: smoking, alcohol abuse, prescription drug abuse Family history: hypertension Medications and Allergies Allergies Allergy/AdvReac Type Severity Reaction Status Date / Time NSAIDS (Non-Steroidal AdvReac Unknown Verified 05/11/19 16:46 Anti-Inflamma Active Meds: Active Medications Acetaminophen (Tylenol) 650 mg PO Q4H PRN PRN Reason: Pain MILD(1-3)/Fever >100.5/VENEGAS Albuterol (Proventil) 2.5 mg IH Q4HRT PRN PRN Reason: Shortness Of Breath Bacitracin (Antibiotic Oint) 1 applic TP PRN PRN PRN Reason: Wound Care Last Admin: 05/12/19 23:09 Dose: 1 applic Documented by: Heparin Sodium/Sodium Chloride (Heparin/ 0.45% Nacl-25,000 Unit/500 Ml) 25,000 unit in 500 mls @ 20 mls/hr IV TITRATE LILO; Protocol Last Titration: 05/13/19 04:44 Dose: Infused Documented by: Nitroglycerin (Nitrostat) 0.4 mg SL Q5M PRN PRN Reason: Chest Pain Ondansetron HCl (Zofran) 4 mg IV Q8H PRN PRN Reason: Nausea And Vomiting Pantoprazole Sodium (Protonix) 40 mg PO DAILY [facility] Last Admin: 05/13/19 09:06 Dose: 40 mg Documented by: Sodium Chloride (Sodium Chloride Flush Syringe 10 Ml) 10 ml IV BID [facility] Last Admin: 05/13/19 09:06 Dose: 10 ml Documented by: Sodium Chloride (Sodium Chloride Flush Syringe 10 Ml) 10 ml IV PRN PRN PRN Reason: LINE FLUSH Exam - Constitutional Vitals: Temp Pulse Resp BP Pulse Ox 97.9 F 84 18 142/94 97 05/13/19 07:42 05/13/19 07:42 05/13/19 07:42 05/13/19 07:42 05/13/19 07:42 Results - Labs CBC & Chem 7: 05/13/19 02:19 05/12/19 05:29 Labs: Abnormal lab results 05/13/19 Range/Units 02:19 Heparin Anti-Xa Level 0.10 L (0.3-0.7) U.I./ml
--- NOTE | 2019-05-13 12:25 | Progress Note ---
Assessment and Plan Elevated cardiac enzymes due to acute bilateral PE. Chest pain and shortness of breath related to PE. Acute unprovoked bilateral PE Syncope secondary to PE on IV heparin drip Plan Anticoagulation per primary team. We will obtain an echo to evaluate right heart strain. Subjective Date of service: 05/13/19 Interval history: Patient is resting in bed and appears comfortably. He has no complaints. Objective Vital Signs Temp Pulse Resp BP BP Pulse Ox 05/13/19 11:47 98.0 F 63 18 157/89 98 05/13/19 07:42 97.9 F 84 18 142/94 97 05/13/19 03:26 97.9 F 73 16 112/73 93 05/13/19 01:00 113 H 05/12/19 23:15 98.4 F 100 H 16 96/65 96 05/12/19 19:11 97.8 F 80 16 136/82 92 05/12/19 17:56 98.1 F 18 126/92 - Physical Examination General: No Apparent Distress HEENT: Positive: Normocephaly Neck: Positive: neck supple Cardiac: Positive: Reg Rate and Rhythm Lungs: Positive: Decreased Breath Sounds Neuro: Positive: Grossly Intact Abdomen: Positive: Unremarkable Extremities: Present: normal - Labs and Meds CBC 05/13/19 Range/Units 02:19 Hgb 13.9 (11.8-15.2) gm/dl Hct 42.1 (35.5-45.6) % Plt Count 185 (140-440) K/mm3
--- NOTE | 2019-05-13 12:49 | Progress Note ---
Assessment and Plan Assessment and plan: Work-up is in progress; Follow lower extremity venous Doppler Follow echocardiogram Follow carotid Doppler If the above tests are negative and patient is stable May be discharged home on Eliquis --History of syncopal episode; secondary to PE No new episodes of syncope Follow echocardiogram, carotid Doppler Ambulate as tolerated --Bilateral PE; on heparin drip Follow lower extremity venous Doppler to rule out DVT follow echo for RV and LV function Oxygen PRN ,titrate O2 sats to more than 90% Follow hypercoagulable work-up, Vascular ,hematology evaluation noted and appreciated Transition to Eliquis 10 mg p.o. twice daily for 7 days Followed by 5 mg p.o. twice daily --Non-ST elevation [place]/positive troponins On heparin drip, cardiology evaluated, feel that the abnormal cardiac enzymes are due to bilateral PE Patient refused aspirin, allergic to NSAIDs Cardiology following --DVT prophylaxis; on heparin drip Discharge planning per case management. Once the work-up is completed, transition to oral anticoagulants Monitor closely and adjust management as needed Plan of care reviewed with the patient and his nurse History Interval history: Patient seen and examined patient's chart, imaging studies, medications reviewed Patient feels slightly better, no new episodes of syncope Syncope work-up is in progress On heparin drip Denies any chest pain or shortness of breath Vital signs reviewed Hospitalist Physical - Constitutional Vitals: Temp Pulse Resp BP Pulse Ox 98.0 F 63 18 157/89 98 05/13/19 11:47 05/13/19 11:47 05/13/19 11:47 05/13/19 11:47 05/13/19 11:47 General appearance: Present: no acute distress, well-nourished - EENT Eyes: Present: PERRL, EOM intact - Neck Neck: Present: supple, normal ROM - Respiratory Respiratory effort: normal Respiratory: bilateral: diminished, negative: rales, rhonchi, wheezing - Cardiovascular Rhythm: regular Heart Sounds: Present: S1 & S2 - Extremities Extremities: no ischemia, No edema - Abdominal General gastrointestinal: soft, non-tender, non-distended, normal bowel sounds - Integumentary Integumentary: Present: clear, warm - Psychiatric Psychiatric: appropriate mood/affect, cooperative - Neurologic Neurologic: CNII-XII intact, moves all extremities Results - Labs CBC & Chem 7: 05/13/19 02:19 05/12/19 05:29 Labs: Laboratory Last Values WBC 8.4 K/mm3 (4.5-11.0) 05/11/19 11:59 RBC 4.87 M/mm3 (3.65-5.03) 05/11/19 11:59 Hgb 13.9 gm/dl (11.8-15.2) 05/13/19 02:19 Hct 42.1 % (35.5-45.6) 05/13/19 02:19 MCV 92 fl (84-94) 05/11/19 11:59 MCH 31 pg (28-32) 05/11/19 11:59 MCHC 34 % (32-34) 05/11/19 11:59 RDW 14.6 % (13.2-15.2) 05/11/19 11:59 Plt Count 185 K/mm3 (140-440) 05/13/19 02:19 Lymph % (Auto) 8.8 % (13.4-35.0) L 05/11/19 11:59 [place] % (Auto) 7.5 % (0.0-7.3) H 05/11/19 11:59 Eos % (Auto) 0.8 % (0.0-4.3) 05/11/19 11:59 Baso % (Auto) 0.4 % (0.0-1.8) 05/11/19 11:59 Lymph # 0.7 K/mm3 (1.2-5.4) L 05/11/19 11:59 J[place] # 0.6 K/mm3 (0.0-0.8) 05/11/19 11:59 Eos # 0.1 K/mm3 (0.0-0.4) 05/11/19 11:59 Baso # 0.0 K/mm3 (0.0-0.1) 05/11/19 11:59 Seg Neutrophils % 82.5 % (40.0-70.0) H 05/11/19 11:59 Seg Neutrophils # 6.9 K/mm3 (1.8-7.7) 05/11/19 11:59 PT 19.8 Sec. (12.2-14.9) H 05/11/19 14:16 INR 1.65 (0.87-1.13) H 05/11/19 14:16 APTT 58.5 Sec. (24.2-36.6) H 05/11/19 14:16 D-Dimer 1493.95 ng/mlDDU (0-234) H 05/11/19 14:16 Heparin Anti-Xa Level 0.17 U.I./ml (0.3-0.7) L 05/13/19 10:09 Sodium 141 mmol/L (137-145) 05/12/19 05:29 Potassium 3.8 mmol/L (3.6-5.0) 05/12/19 05:29 Chloride 104.4 mmol/L (98-107) 05/12/19 05:29 Carbon Dioxide 25 mmol/L (22-30) 05/12/19 05:29 Anion Gap 15 mmol/L 05/12/19 05:29 BUN 10 mg/dL (9-20) 05/12/19 05:29 Creatinine 1.2 mg/dL (0.8-1.5) 05/12/19 05:29 Estimated GFR > 60 ml/min 05/12/19 05:29 BUN/Creatinine Ratio 8 % 05/12/19 05:29 Glucose 105 mg/dL (75-100) H 05/12/19 05:29 POC Glucose 111 (70-105) H 05/11/19 11:48 Calcium 8.7 mg/dL (8.4-10.2) 05/12/19 05:29 Total Bilirubin 0.40 mg/dL (0.1-1.2) 05/11/19 11:59 Direct Bilirubin < 0.2 mg/dL (0-0.2) 05/11/19 11:59 AST 31 units/L (5-40) 05/11/19 11:59 ALT 25 units/L (7-56) 05/11/19 11:59 Alkaline Phosphatase 85 units/L (35-129) 05/11/19 11:59 Troponin T 0.059 ng/mL (0.00-0.029) H D 05/11/19 22:22 NT-Pro-B Natriuret Pep 109.3 pg/mL (0-900) 05/11/19 14:32 Total Protein 7.1 g/dL (6.3-8.2) 05/11/19 11:59 Albumin 4.1 g/dL (3.9-5) 05/11/19 11:59 Albumin/Globulin Ratio 1.4 % 05/11/19 11:59 Triglycerides 45 mg/dL (2-149) 05/11/19 11:59 Cholesterol 174 mg/dL (50-199) 05/11/19 11:59 LDL Cholesterol Direct 114 mg/dL (50-130) 05/11/19 11:59 HDL Cholesterol 56 mg/dL (40-59) 05/11/19 11:59 Cholesterol/HDL Ratio 3.10 % 05/11/19 11:59 Urine Color Yellow (Yellow) 05/11/19 12:16 Urine Turbidity Clear (Clear) 05/11/19 12:16 Urine pH 7.0 (5.0-7.0) 05/11/19 12:16 Ur Specific [employer] Mdl 1.021 (1.003-1.030) 05/11/19 12:16 Urine Protein 30 mg/dl mg/dL (Negative) 05/11/19 12:16 Urine Glucose (UA) Neg mg/dL (Negative) 05/11/19 12:16 Urine Ketones Neg mg/dL (Negative) 05/11/19 12:16 Urine Blood Neg (Negative) 05/11/19 12:16 Urine Nitrite Neg (Negative) 05/11/19 12:16 Urine Bilirubin Neg (Negative) 05/11/19 12:16 Urine Urobilinogen 2.0 mg/dL (<2.0) 05/11/19 12:16 Ur Leukocyte Esterase Neg (Negative) 05/11/19 12:16 Urine WBC (Auto) 1.0 /HPF (0.0-6.0) 05/11/19 12:16 Urine RBC (Auto) 2.0 /HPF (0.0-6.0) 05/11/19 12:16 U Epithel Cells (Auto) < 1.0 /HPF (0-13.0) 05/11/19 12:16 Hyaline Casts 1 /LPF 05/11/19 12:16 Urine Mucus Few /HPF 05/11/19 12:16 Urine Opiates Screen Presumptive negative 05/11/19 Unknown Urine Methadone Screen Presumptive negative 05/11/19 Unknown Ur Barbiturates Screen Presumptive negative 05/11/19 Unknown Ur Phencyclidine Scrn Presumptive negative 05/11/19 Unknown Ur Amphetamines Screen Presumptive negative 05/11/19 Unknown U Benzodiazepines Scrn Presumptive negative 05/11/19 Unknown Urine Cocaine Screen Presumptive negative 05/11/19 Unknown U Marijuana (THC) Screen Presumptive negative 05/11/19 Unknown Drugs of Abuse Note Disclamer 05/11/19 Unknown Active Medications - Current Medications Current Medications: Generic Name Dose Route Start Last Admin Trade Name Freq PRN Reason Stop Dose Admin Acetaminophen 650 mg 05/11/19 16:30 Tylenol PO Q4H PRN Pain MILD(1-3)/Fever >100.5/VENEGAS Albuterol 2.5 mg 05/11/19 16:30 Proventil IH Q4HRT PRN Shortness Of Breath Bacitracin 1 applic 05/12/19 21:43 05/12/19 23:09 Antibiotic Oint TP 1 applic PRN PRN Administration Wound Care Heparin Sodium/Sodium Chloride 25,000 unit in 500 mls @ 20 mls/hr 05/11/19 14:00 05/13/19 04:44 Heparin/ 0.45% Nacl-25,000 Unit/500 Ml IV Infused TITRATE LILO Titration Protocol 1,000 UNITS/HR Nitroglycerin 0.4 mg 05/11/19 16:31 Nitrostat SL Q5M PRN Chest Pain Ondansetron HCl 4 mg 05/11/19 16:30 Zofran IV Q8H PRN Nausea And Vomiting Pantoprazole Sodium 40 mg 05/13/19 10:00 05/13/19 09:06 Protonix PO 40 mg DAILY LILO Administration Sodium Chloride 10 ml 05/11/19 22:00 05/13/19 09:06 Sodium Chloride Flush Syringe 10 Ml IV 10 ml BID LILO Administration Sodium Chloride 10 ml 05/11/19 16:30 Sodium Chloride Flush Syringe 10 Ml IV PRN PRN LINE FLUSH
[2019-05-13] MEDS: HEPARIN/ 0.45% NACL DRIP 25,000 UNIT/500 ML BAG IV SCH (13:27)
[2019-05-13] MEDS: APIXABAN 5 MG TAB PO SCH (22:06)
--- NOTE | 2019-05-14 07:33 | Hem/Onc Progress Note ---
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 No pallor No icterus No neck lymph nodes Heart S1-S2 present Lungs clear to auscultation anteriorly Abdomen soft Leg no edema Male genitalia not examined - Constitutional Vitals: Last Vital Signs Temp 97.3 F L 05/14/19 04:13 Pulse 69 05/14/19 04:13 Resp 20 05/14/19 04:13 BP 126/86 05/14/19 04:13 Pulse Ox 98 05/14/19 04:13 - Labs Lab Results: Laboratory Results - last 24 hr 05/13/19 10:09 Heparin Anti-Xa Level 0.17 L Medications & Allergies - Medications Allergies/Adverse Reactions: Allergies NSAIDS (Non-Steroidal Anti-Inflamma Adverse Reaction (Verified 05/11/19 16:46) Unknown Home Medications: Home Medications Medication Instructions Recorded Confirmed Last Taken Type No Known Home Medications [No 05/13/19 05/13/19 Unknown History Reported Home Medications] Active Medications: Generic Name Dose Route Start Last Admin Trade Name Freq PRN Reason Stop Dose Admin Acetaminophen 650 mg 05/11/19 16:30 Tylenol PO Q4H PRN Pain MILD(1-3)/Fever >100.5/VENEGAS Albuterol 2.5 mg 05/11/19 16:30 Proventil IH Q4HRT PRN Shortness Of Breath Apixaban 10 mg 05/13/19 22:00 05/13/19 22:06 Eliquis PO 05/20/19 10:01 10 mg Q12HR LILO Administration Protocol Bacitracin 1 applic 05/12/19 21:43 05/12/19 23:09 Antibiotic Oint TP 1 applic PRN PRN Administration Wound Care Nitroglycerin 0.4 mg 05/11/19 16:31 Nitrostat SL Q5M PRN Chest Pain Ondansetron HCl 4 mg 02/29/20 16:30 Zofran IV Q8H PRN Nausea And Vomiting Pantoprazole Sodium 40 mg 05/13/19 10:00 05/13/19 09:06 Protonix PO 40 mg DAILY LILO Administration Sodium Chloride 10 ml 05/11/19 22:00 05/13/19 22:07 Sodium Chloride Flush Syringe 10 Ml IV 10 ml BID LILO Administration Sodium Chloride 10 ml 05/11/19 16:30 Sodium Chloride Flush Syringe 10 Ml IV PRN PRN LINE FLUSH
--- NOTE | 2019-05-14 08:07 | Vascular Lab Report ---
BILATERAL CAROTID DOPPLER ULTRASOUND INDICATION : syncope TECHNIQUE: Grayscale and color Doppler imaging performed through the neck. COMPARISON: None FINDINGS: Right: There is no significant atherosclerotic disease. Peak systolic velocity in the CCA is 74 cm/ s with end-diastolic velocity of 13 cm/s. Peak systolic velocity in the proximal ICA is 83 cm/s with end-diastolic velocity of 23 cm/s. ICA to CCA ratio is less than 2. There is antegrade flow in the E CA and the vertebral artery. Left: There is no significant atherosclerotic disease. Peak systolic velocity in the CCA is 65 cm/s w ith end-diastolic velocity of 12 cm/s. Peak systolic velocity in the proximal ICA is 74 cm/s with end -diastolic velocity of 32 cm/s. ICA to CCA ratio is less than 2. There is antegrade flow in the ECA and the vertebral artery. IMPRESSION: No hemodynamically significant stenosis by NASCET criteria. Signer Name: Jaron Vivas Jr, MD Signed: 05/13/2019 11:21 AM Workstation Name: [id number]
--- NOTE | 2019-05-14 08:07 | Vascular Lab Report ---
DUPLEX DOPPLER LOWER EXTREMITY VEINS, BILATERAL INDICATION: Boni PE,evaluate for DVT. TECHNIQUE: Duplex doppler imaging was performed through the veins of both lower extremities using venous tio steve and other maneuvers. COMPARISON: None available. FINDINGS: Right Common femoral vein: Negative. Right Superficial femoral vein: Negative. Right Popliteal vein: Negative. Right Calf veins: Negative. Left Common femoral vein: Negative. Left Superficial femoral vein: Negative. Left Popliteal vein: Negative. Left Calf veins: Negative. Additional findings: None. IMPRESSION: Negative for DVT.. Signer Name: Jose G Duvall MD Signed: 05/13/2019 11:16 AM Workstation Name: [id number]
[2019-05-14] MEDS: APIXABAN 5 MG TAB PO SCH (10:10)
[2019-05-14] MEDS: PANTOPRAZOLE 40 MG TAB PO SCH (10:10)
--- NOTE | 2019-05-14 10:21 | Progress Note ---
Assessment and Plan Elevated cardiac enzymes due to acute bilateral PE. Chest pain and shortness of breath related to PE. Acute unprovoked bilateral PE Syncope secondary to PE initiated on eliquis An echocardiogram reports a decreased left ventricular systolic function, ejection fraction 35-40%. Recommend: Medical therapy for dilated cardiomyopathy with afterload reduction agents and beta blockers. Cardiac evaluation with a non-pharmacological stress test will be done as an outpatient. Once discharged, patient will f/u in our office in 5-7 days. Subjective Date of service: 05/14/19 Principal diagnosis: PE Interval history: Patient is resting in bed and appears comfortably. He has no complaints. Objective Vital Signs Temp Pulse Pulse Resp BP BP Pulse Ox 05/14/19 08:35 97.6 F 74 20 132/86 98 05/14/19 04:13 97.3 F L 69 20 126/86 98 05/14/19 00:36 97.5 F L 57 L 20 139/86 97 05/13/19 20:20 60 05/13/19 19:58 98.0 F 65 20 136/87 99 05/13/19 17:00 60 05/13/19 15:37 97.9 F 61 18 155/88 99 05/13/19 14:00 68 20 98 05/13/19 11:47 98.0 F 63 18 157/89 98 - Physical Examination General: No Apparent Distress HEENT: Positive: Normocephaly Neck: Positive: neck supple Neuro: Positive: Grossly Intact Abdomen: Positive: Unremarkable Skin: Positive: Clear Extremities: Present: normal
--- NOTE | 2019-05-14 16:05 | Discharge Summary ---
Providers - Providers Date of Admission: 05/12/19 11:01 Date of discharge: 05/14/19 Attending physician: TATIANA BOLTON 05/11/19 Consult to Cardiac Rehabilitation [CONS] Routine Reason For Exam: Phase I 05/11/19 16:14 Consult to Physician [CONS] Urgent Comment: Dr. Martinez spoke to Dr. Pacheco @ 13:58- [facility] Consulting Provider: CHRISTIANNE PACHECO Physician Instructions: Reason For Exam: nstemi 05/12/19 07:55 Consult to Physician [CONS] Urgent Comment: Consulting Provider: MEKA CAMPBELL Physician Instructions: Reason For Exam: Boni PE 05/12/19 10:53 Consult to Wound/ET Nurse [CONS] Routine Reason For Exam: wound eval 05/12/19 10:58 Consult to Physician [CONS] Routine Comment: Consulting Provider: REINALDO CHAO Physician Instructions: Reason For Exam: Boni PE Primary care physician: SPINNING ROOM WORKER Hospitalization Condition: Stable Hospital course: --History of syncopal episode; secondary to PE No new episodes of syncope Syncope work-up negative Except for cardiomyopathy EF of 35 to 40% --Acute systolic congestive heart failure; EF 35 to 40% Advised Coreg, lisinopril, low-sodium diet, fluid restriction Follow cardiology in 1 week --Bilateral PE; on heparin drip Follow lower extremity venous Doppler to rule out DVT follow echo for RV and LV function Oxygen PRN ,titrate O2 sats to more than 90% Follow hypercoagulable work-up, Vascular ,hematology evaluation noted and appreciated Transition to Eliquis 10 mg p.o. twice daily for 7 days Followed by 5 mg p.o. twice daily --Non-ST elevation [place]/positive troponins On heparin drip, cardiology evaluated, feel that the abnormal cardiac enzymes are due to bilateral PE Patient refused aspirin, allergic to NSAIDs Cardiology following --DVT prophylaxis; on heparin drip Discharge planning per case management. Once the work-up is completed, transition to oral anticoagulants Monitor closely and adjust management as needed Plan of care reviewed with the patient and his nurse Disposition: DC-30 STILL A PATIENT Exam - Constitutional Vitals: Temp Pulse Resp BP Pulse Ox 97.5 F L 65 20 144/100 97 05/14/19 11:50 05/14/19 11:50 05/14/19 11:50 05/14/19 11:50 05/14/19 11:50 Plan Activity: advance as tolerated Diet: low salt Additional Instructions: Advised 5 days work excuse from 05/15/2019-05/19/2019. Check with primary care physician for further recommendations. Low-salt diet. Advised to follow with, gas compressor turbine operator Dr. Leo. Power Plant Installer Dr. Julio Cesar Pacheco per schedule Follow up with: PRIMARY MD LILY [Primary Care Provider] - 3-5 Days REINALDO CHAO MD [Staff Physician] - 7 Days CHRISTIANNE PACHECO MD [Staff Physician] - 7 Days Forms: Work/School Release Form Prescriptions: carvediloL [Coreg] 3.125 mg PO BID #60 tablet Apixaban [Eliquis] 2 tab PO Q12HR #22 tablet Apixaban [Eliquis] 5 mg PO Q12HR #60 tablet lisinopriL [Zestril TAB] 5 mg PO QDAY #30 tablet
[2019-05-14 17:36] VITALS: BP 142/84
[2019-05-14] MEDS ORDERED: carvediloL 3.125 MG TAB PO SCH (22:00)
[2019-05-15] MEDS ORDERED: LISINOPRIL 5 MG TAB PO SCH (10:00)
[2019-05-20] MEDS ORDERED: APIXABAN 5 MG TAB PO SCH (22:00)
== END 2019-05-14 18:30 | disposition home or self-care (01) | DRG 175 ==
LOC: ED 11:19 → 4A 16:30 → OBSVTOIN 05-12 11:01
PROVIDERS: ADMIT Internal Medicine; ATTEND Internal Medicine
DX: I26.93 Single subsegmental thrombotic pulmonary embolism without acute cor pulmonale (principal); I21.4 Non-ST elevation (NSTEMI) myocardial infarction; I50.21 Acute systolic (congestive) heart failure; I26.99 Other pulmonary embolism without acute cor pulmonale; R55 Syncope and collapse; R79.89 Other specified abnormal findings of blood chemistry; Z82.49 Family history of ischemic heart disease and other diseases of the circulatory system; Z88.6 Allergy status to analgesic agent; Z87.891 Personal history of nicotine dependence
CPT/HCPCS: 36415; 70450; 71046; 71275; 80048; 80061; 80076; 80307; 81001; 82962; 83880; 84484; 85014; 85018; 85025; 85049; 85379; 85520; 85610; 85730; 93005; 93010; 93306; 93880; 93970; G0378; A6250; C9113; J1644; Q9967